=== PATIENT | female | born 1965 | race African-American/Black ===

== ENCOUNTER 2022-02-05 09:54 | Outpatient (CLI) | payer OTHER | END 2022-02-05 09:55 | disposition home or self-care (01) | LOC: CSHLAB 09:54 | PROVIDERS: ATTEND Internal Medicine Gastroenterology | DX: Z20.822 Contact with and (suspected) exposure to COVID-19 (principal); Z12.11 Encounter for screening for malignant neoplasm of colon | CPT/HCPCS: 87811 ==

== ENCOUNTER 2022-02-07 06:09 | Day surgery (SDC) | payer OTHER ==
[2022-02-05 11:17] VITALS: BMI 47.2
[2022-02-07] MEDS ORDERED: Lidocaine 1% MPF 2 ML VIAL ONE (06:59)
[2022-02-07] MEDS ORDERED: PROPOFOL 40 ML ONE (07:14)
[2022-02-07] MEDS ORDERED: Lidocaine 1% PF 5 ML VIAL ONE (07:14)
[2022-02-07] MEDS ORDERED: Midazolam HCl 2 mg/2 ml Vial ONE ×2 (07:36→07:47)
== END 2022-02-07 09:45 | disposition home or self-care (01) ==
LOC: CSHSDC 06:09
PROVIDERS: ATTEND Internal Medicine Gastroenterology
PROC: 0DJD8ZZ Inspection of Lower Intestinal Tract, Via Natural or Artificial Opening Endoscopic (ICD-10-PCS; principal; 2022-02-07)
DX: Z12.11 Encounter for screening for malignant neoplasm of colon (principal); K64.9 Unspecified hemorrhoids; K21.9 Gastro-esophageal reflux disease without esophagitis; F31.9 Bipolar disorder, unspecified; E11.9 Type 2 diabetes mellitus without complications; I10 Essential (primary) hypertension; E66.9 Obesity, unspecified; Z68.42 Body mass index [BMI] 45.0-49.9, adult; Z88.8 Allergy status to other drugs, medicaments and biological substances; Z88.2 Allergy status to sulfonamides
CPT/HCPCS: J2250; J2704